=== PATIENT | female | born 1985 | race Caucasian/White ===

== ENCOUNTER 2018-11-11 15:19 | Emergency (ER) | payer OTHER ==
[2018-11-11 15:32] VITALS: BP 120/84
[2018-11-11] MEDS ORDERED: KETOROLAC TROMETHAMINE 60 MG/2 ML VIAL IM ONE (17:14)
--- NOTE | 2018-11-11 19:35 | ED Physician Documentation ---
Sore Throat/Dental Pain - HISTORIAN Historian: patient - HPI Stated Complaint: dental pain Chief Complaint: Dental Pain Onset: days ago (yesterday) Context: Dental Caries Further Comments: yes (33 year old female patient presents with upper left tooth pain for the past 24 hours, with facial edema. Patient states she is suppose to have her teeth pulled but cannot afford it.) - ROS CONST: no problems CVS/RESP: none GI/: denies: nausea, vomiting MS/SKIN/LYMPH: denies: muscle aches, rash, leg swelling, ankle swelling, other NEURO/PSYCH: none - PAST HX Past History: gum disease Allergies/Adverse Reactions: Allergies Allergy/AdvReac Type Severity Reaction Status Date / Time Penicillins Allergy Verified 11/11/18 15:32 Home Medications: Ambulatory Orders Medication Instructions Recorded Clindamycin HCl 300 mg PO TID #30 capsule 11/11/18 - SOCIAL HX Smoking History: cigarettes - FAMILY HX Family History: No - VITAL SIGNS Vital Signs: Vital Signs Temp Pulse Resp BP Pulse Ox 97.9 F 80 14 120/84 98 11/11/18 17:22 11/11/18 17:22 11/11/18 17:22 11/11/18 17:22 11/11/18 17:22 - REVIEWED ASSESSMENTS Nursing Assessment Reviewed: Yes Vitals Reviewed: Yes ED Results Lab/Radiology - Orders Orders: ED Orders Category Date Time Status Ketorolac Tromethamine [Toradol] Med 11/11/18 17:14 Discontinued 60 mg IM NOW ONE Dental Pain Physical Exam - EXAM General Appearance: mild distress Mouth/Throat: lips nml, pharynx nml, voice nml, no drooling, no air way problems, no thrush, membranes nml, dental tenderness, gum swelling around teeth, widespread dental decay, other (multiple missing teeth, multiple teeth with decay to gumline. ) Respiratory: no resp. distress CVS: reg. rate & rhythm Skin: normal color, warm/dry, NR, INT, PAL, DR Neuro/Psych: No: none Discharge Clincal Impression: Pain due to dental caries Prescriptions: Clindamycin HCl 300 mg PO TID #30 capsule Referrals: Primary Doctor,No [Primary Care Provider] - 2 Days Additional Instructions: Dental Pain Ibuprofen 800mg every 8 hours x 3 days Tylenol 650-1000mg every 4 hours as needed for pain, limit your dose to 4G in 24 hours. Over the counter DenTek - follow package directions. 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 See your dentist as soon as possible Condition: Stable Disposition: 01 HOME, SELF-CARE Decision to Admit: NO Decision Time: 17:10
== END 2018-11-11 17:23 | disposition home or self-care (01) ==
LOC: ED 15:19
DX: K02.9 Dental caries, unspecified (principal)
CPT/HCPCS: 96372; 99284; J1885